=== PATIENT | male | born 1950 | race Caucasian/White ===

== ENCOUNTER 2017-01-22 10:55 | Emergency (ER) | payer MEDICARE, OTHER ==
[2017-01-22] MEDS ORDERED: MECLIZINE HCL 25 MG TABLET PO ONE (11:36)
--- NOTE | 2017-01-22 11:44 | ERNOTE ---
Dizziness ER Record Date of Service: 01/22/17 Presenting Symptoms: vertigo Time Seen by Provider: 01/22/17 11:25 Source: patient Exam Limitations: no limitations Immunizations: IMMUNIZATION HX Immunizations Up to Date No History of Influenza Vaccine Yes Hx Pneumococcal Vaccination More Information Required Allergies/Adverse Reactions: Allergies Allergy/AdvReac Type Severity Reaction Status Date / Time No Known Allergies Allergy Verified 01/22/17 11:07 Home Medications: HOME MEDICATIONS Allopurinol [Zyloprim] 300 mg PO DAILY 01/22/17 [Last Taken Unknown] Aspirin 325 mg PO DAILY 01/22/17 [Last Taken Unknown] Atorvastatin Calcium [Lipitor] 80 mg PO DAILY 01/22/17 [Last Taken Unknown] Cholecalciferol [Vitamin D] 1,000 unit MC DAILY 01/22/17 [Last Taken Unknown] Clopidogrel Bisulfate [Plavix] 75 mg PO DAILY 01/22/17 [Last Taken Unknown] Levothyroxine Sodium [Synthroid] 25 mcg PO DAILY 01/22/17 [Last Taken Unknown] Lisinopril 20 mg PO DAILY 01/22/17 [Last Taken Unknown] Meclizine HCl 12.5 mg PO QID PRN #40 tablet 01/22/17 [Last Taken Unknown] [place]-3 Fatty Acids/Fish Oil [Fish Oil 1,000 mg Capsule] 2 each PO DAILY [Last Taken Unknown] Topiramate [Topiramate ER] 100 mg PO DAILY 01/22/17 [Last Taken Unknown] - History of Present Illness Narrative: Pt. comes in with c/o dizziness for 12 hours. Pt. states that he started to get dizzy last night before bed and then when he woke up he found that it was difficult to ambulate to the bathroom as standing made him worse. Pt. denies any recent illnesses, fevers, vision changes, but does states that this has happened in the past twice and has been treated with exercise and it improved his symptoms. Review of Systems - Review of Systems Constitutional: Present: fever, chills, weakness, fatigue, malaise EYE: Present: no symptoms reported ENT: Present: no symptoms reported Respiratory: Present: no symptoms reported. Absent: shortness of breath, cough , wheezing Cardiology: Present: no symptoms reported. Absent: chest pain, palpitations, edema Gastrointestinal/Abdominal: Present: nausea. Absent: vomiting, diarrhea, abdominal pain Genitourinary: Present: no symptoms reported Musculoskeletal: Present: no symptoms reported. Absent: back pain, joint pain Skin: Present: no symptoms reported Neurological: Present: dizziness/light-headedness. Absent: headache, numbness, tingling, tremors All Other Systems: All systems neg except as marked - Patient's Past Medical History Patient History - Medical: Diabetes Type 2 Patient History - Cardiac/Respiratory: Hypertension, Hyperlipidemia Patient History - Cancer: No Hx of Cancer Patient History - Surgical Procedures: Appendectomy, Cardiac stent Patient History - Other: None - Social History Living Situations: home Abuse History: No History of abuse Psych History: No pertinent hx Smoking Status: Never smoker Have you smoked in the past 12 months: No Do you dip or chew tobacco: No Alcohol Use: none Drug Use: none - Immunizations Immunizations Up to Date: No Hx Pneumococcal Vaccination: More Information Required to Determine History of Influenza Vaccine: Yes Physical Exam - Physical Exam General Appearance: Present: wd/wn, alert, no apparent distress Head Exam: Present: normal inspection, no evidence of injury Eye Exam: Normal inspection: bilateral, PERRL: bilateral, EOMI: bilateral Ears, Nose, Throat: Present: normal ENT inspection, normal pharynx Neck: Present: normal inspection, nontender, supple, full range of motion. Absent: lymphadenopathy (R), lymphadenopathy (L) Respiratory: Present: no respiratory distress, normal breath sounds, no accessory muscle use, chest nontender, lungs clear. 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 Skin Exam: Present: normal color, warm/dry. Absent: pallor, skin rash ED Progress - Results and Orders Patient's Lab Results:: I have reviewed the patient's lab results. - Vital Signs Patient's Vital Signs:: I have reviewed the patient's vital signs. Vital Signs: Vital Signs 01/22/17 11:07 Temperature 36.6 C Pulse Rate 73 Respiratory 18 Rate Blood Pressure 147/80 O2 Sat by Pulse 95 Oximetry - EKG EKG: NSR EKG read: Reviewed by me EKG Comments: interp by dr shipley - CT/Ultrasound CT/Ultrasound Narrative: CT head with linear density of Mid brain that needs evaluation on non-emergent basis and nodule of post nasopharynx not present on exam possible polyp - Progress/Reassessment Chief Complaint: Dizziness Progress:: Improved Departure Clinical Impression: Vertigo, Dehydration Hypothyroid Qualifiers: Hypothyroidism type: unspecified Qualified Code(s): E03.9 - Hypothyroidism, unspecified - Departure Disposition: Home self-care Condition: Good Instructions: Vertigo, [id number] Additional Instructions: Please make follow up appointment with Dr Salguero to discuss your thyroid function and your need for MRI. Referrals: Truman Salguero DO [Primary Care Provider] - Prescriptions: Meclizine HCl 12.5 mg PO QID PRN #40 tablet PRN Reason: Motion Sickness
[2017-01-22 11:52] LABS: Hematocrit 46.6 % (42.0-52.0); Hemoglobin 15.8 gm/dL (13.5-18.0); Mean Cell Volume 87.8 fl (78-100); Mean Corpuscular Hemoglobin 29.8 pg (27-31); Mean Corpuscular Hgb Conc 33.9 g/dl (32-36); Mean Platelet Volume 10.3 fl (6.0-9.5); Neutrophil # 3.9 K/mm3 (1.3-6.0); Neutrophil % 68.3 % (42-75.0); Platelet Count 150 K/mm3 (150-450); Red Blood Count 5.31 M/mm3 (4.7-6.0); Red Cell Distribution Width 14.2 % (11.5-14.0); White Blood Count 5.6 K/mm3 (4.0-10.5)
[2017-01-22 12:06] LABS: Troponin I Less than 0.017 ng/ml (0.00-0.10)
[2017-01-22 12:09] LABS: ALT 74 U/L (19-67); AST 37 U/L (0-48); Albumin * 3.9 gm/dl (3.4-5.0); Alkaline Phosphatase * 89 U/L (50-170); Anion Gap 14.9 mmol/L (6.8-13.8); BUN/Creatinine Ratio 22.7 (9.0-21.6); Bilirubin, Total 0.7 mg/dL (0.0-1.1); Blood Urea Nitrogen 32 mg/dL (6-23); Ca. Corrected For Albumin 9.1 mg/dL (8.4-10.2); Calcium * 9.3 mg/dL (7.9-10.9); Carbon Dioxide 22.5 mmol/L (24-32.6); Chloride 105 mmol/L (97-106); Glucose * 127 mg/dL (70-110); Potassium 4.4 mmol/L (3.4-4.6); Sodium 138 mmol/L (132-142); TSH * 3.974 uIU/mL (0.358-3.74); Total Protein 7.4 gm/dL (6.2-8.2)
[2017-01-22] MEDS ORDERED: MECLIZINE HCL 25 MG TABLET ONE (12:12)
[2017-01-22] MEDS ORDERED: NORMAL SALINE 1,000 ML IV ONE (12:29)
[2017-01-22 13:12] VITALS: BP 140/84
[2017-01-22 14:54] LABS: Urine Appearance Clear; Urine Color Yellow
[2017-01-22 14:55] LABS: Urine Bacteria None Seen; Urine Bilirubin Negative (NEGATIVE); Urine Blood Negative /ul (NEGATIVE); Urine Ketone Negative (NEGATIVE); Urine Nitrite Negative (NEGATIVE); Urine Protein Negative (NEGATIVE); Urine RBC None Seen /hpf (0-5); Urine Specific Gravity 1.025 SP.GR. (1.005-1.030); Urine Urobilinogen Normal (NORMAL); Urine WBC None Seen /hpf (0-5)
== END 2017-01-22 14:15 | disposition home or self-care (01) ==
LOC: ER 10:55
DX: E86.0 Dehydration (principal); E03.9 Hypothyroidism, unspecified; R42 Dizziness and giddiness; Z95.5 Presence of coronary angioplasty implant and graft; E78.5 Hyperlipidemia, unspecified; I10 Essential (primary) hypertension